=== PATIENT | female | born 1945 | race Caucasian/White ===

== ENCOUNTER 2016-09-16 17:35 | Emergency (ER) | payer MEDICARE ==
--- NOTE | ~2016-09-16 | EKG ---
PATIENT: LOREE MCDONALD UNIT #: [id number] Ventricular Rate: 80 BPM Atrial Rate: 80 BPM P-R Interval: 160 ms QRS Duration: 88 ms Q-T Interval: 408 ms QTC Calculation(Bezet): 470 ms P [place]: 13 degrees Calculated R [place]: 25 degrees Calculated T [place]: 17 degrees Diagnosis Line: Normal sinus rhythm Diagnosis Line: Poor R wave progression questionable lead position Diagnosis Line: or body habitus Diagnosis Line: Borderline ECG Diagnosis Line: Diagnosis Line: Confirmed by MARYSE WIGGINS MD ([id number]) on 09/17/2016 Diagnosis Line: 10:37:48 PM INTERPRETING MD: ROSALIE MCCLURE
[~2016-09-16 17:35] MED LIST: ALPRAZOLAM PO; ASPIRINEC PO; KCL PO; LASIX PO; MULTI-VITAMIN1 TAB PO; NIACIN PO; NORVASC PO; PRILOSEC PO; TOPROL XL PO; VYTORIN 10/40 T1 TAB PO; VYTORIN PO; ZANTAC PO; ZOFRAN PO
== END 2016-09-16 19:20 | disposition home or self-care (01) ==
LOC: CED 17:35
DX: H81.10 Benign paroxysmal vertigo, unspecified ear (principal); I10 Essential (primary) hypertension
CPT/HCPCS: 93005; 99283

== ENCOUNTER 2016-11-18 09:11 | Emergency (ER) | payer MEDICARE | END 2016-11-18 10:16 | disposition home or self-care (01) | LOC: CED 09:11 | DX: T81.4XXA Infection following a procedure, initial encounter (principal); I10 Essential (primary) hypertension; E78.5 Hyperlipidemia, unspecified; K21.9 Gastro-esophageal reflux disease without esophagitis; Z98.51 Tubal ligation status; Z98.890 Other specified postprocedural states; Z88.0 Allergy status to penicillin; Z88.2 Allergy status to sulfonamides | CPT/HCPCS: 99283 ==